=== PATIENT | male | born 2000 | race Caucasian/White ===

== ENCOUNTER 2022-09-19 16:26 | Emergency (ER) | payer MEDICAID ==
[~2022-09-19] VITALS: Ht 188 cm; Wt 94.3 kg
[2022-09-19 16:35] VITALS: BP_SYST 123
--- NOTE | 2022-09-19 16:35 | NUR ---
Patient triaged and placed in waiting room. VSS and patient appears in no acute distress at this time. Accompanied by FATHER, awaiting available bed, and MD notified of need for MSE.
--- NOTE | 2022-09-19 18:05 | NUR ---
ER DR. GARCIA EXAMINING PT IN TRIAGE
[2022-09-19 19:33] VITALS: BP_SYST 115
--- NOTE | 2022-09-19 19:33 | NUR ---
Patient given written and verbal discharge instructions and verbalizes understanding. ER MD discussed with patient the results and treatment provided. Patient in stable condition. Rx of Motrin and Ibuprofen given. Patient educated on pain management and to follow up with PMD. Opportunity for questions provided and answered.
== END 2022-09-19 19:33 | disposition home or self-care (01) ==
LOC: SED 16:26
DX: S83.92XA Sprain of unspecified site of left knee, initial encounter (principal); Z79.899 Other long term (current) drug therapy; W17.81XA Fall down embankment (hill), initial encounter; Y93.89 Activity, other specified; Y92.89 Other specified places as the place of occurrence of the external cause; Y99.8 Other external cause status
CPT/HCPCS: 73564; 99283